=== PATIENT | female | born 1970 | race Caucasian/White ===

== ENCOUNTER 2023-08-26 15:02 | Emergency (ER) | payer OTHER ==
[~2023-08-26] VITALS: Ht 149.9 cm; Wt 77.0 kg
[2023-08-26 15:10] VITALS: O2SAT 99
[2023-08-26] MEDS ORDERED: NAPR-1176 MT (16:43)
[2023-08-26] MEDS ORDERED: LIDO700A15 TP (16:43)
[2023-08-26 17:11] VITALS: BP 132/74; PULSE 79; RESP 16; TEMP 98.9
[2023-08-26] MEDS: KETOROLAC 15MG/ML VIAL IM ONE (17:11)
== END 2023-08-26 17:15 | disposition home or self-care (01) ==
LOC: ER 15:02
DX: M25.531 Pain in right wrist (principal); M54.50 Low back pain, unspecified; Z90.49 Acquired absence of other specified parts of digestive tract; Z98.51 Tubal ligation status; V49.9XXA Car occupant (driver) (passenger) injured in unspecified traffic accident, initial encounter; Y93.89 Activity, other specified; Y92.89 Other specified places as the place of occurrence of the external cause; Y99.8 Other external cause status
CPT/HCPCS: 99283; 73110; 96372; J1885